=== PATIENT | male | born 1965 | race Caucasian/White ===

== ENCOUNTER 2024-06-01 15:03 | Inpatient (IN) | payer OTHER, MEDICAID ==
[~2024-06-01] VITALS: Ht 170.2 cm; Wt 63.5 kg
[2024-06-01 15:08] VITALS: BP 220/120; PULSE 90; RESP 20; TEMP 98; O2SAT 95
[2024-06-01 15:37] LABS: BASOPHILS # (AUTO) 0.1 K/uL (0.00-0.22); BASOPHILS % (AUTO) 0.9 % (0.0-2.0); EOSINOPHILS # (AUTO) 0.1 K/uL (0-0.4); EOSINOPHILS % (AUTO) 0.3 % (0.0-4.0); HEMATOCRIT 39.4 % (36-52); HEMOGLOBIN 12.7 g/dL (12.0-18.0); LYMPHOCYTES # (AUTO) 1.1 K/uL (2.0-11.5); LYMPHOCYTES % (AUTO) 7.2 % (20.5-51.1); MEAN CORPUSCULAR HEMOGLOBIN 28 pg (27-31); MEAN CORPUSCULAR HGB CONC 32 g/dL (33-37); MEAN CORPUSCULAR VOLUME 86.2 fL (80-94); MONOCYTES # (AUTO) 1.3 K/uL (0.8-1.0); NEUTROPHILS # (AUTO) 13.1 K/uL (1.8-7.7); NEUTROPHILS % (AUTO) 83.6 % (42.2-75.2); PLATELET COUNT (AUTO) 277 K/uL (140-450); RED BLOOD CELL COUNT(AUTO) 4.57 MIL/uL (4.20-6.10); RED CELL DISTRIBUTION WIDTH 16.8 % (11.6-13.7); WHITE BLOOD COUNT (AUTO) 15.7 K/uL (4.8-10.8)
[2024-06-01 15:52] LABS: ANION GAP 16.2 (8-16); CALCIUM 9.1 mg/dL (8.5-10.1); CARBON DIOXIDE 29.1 mmol/L (21-32); POTASSIUM 5.3 mmol/L (3.5-5.1)
[2024-06-01 16:04] LABS: CREATININE 8.4 mg/dL (0.6-1.3)
[2024-06-01] MEDS ORDERED: FURO80TA6 PO (16:42)
[2024-06-01] MEDS ORDERED: AMLO10TA88 PO (16:42)
[2024-06-01] MEDS ORDERED: TACR1CAP10 PO (16:42)
[2024-06-01] MEDS ORDERED: KETO5DRO2 OP (16:42)
[2024-06-01] MEDS ORDERED: SODI325T PO (16:42)
[2024-06-01] MEDS ORDERED: ESOM40CA2 PO (16:42)
[2024-06-01] MEDS ORDERED: LISI40TA8 PO (16:42)
[2024-06-01] MEDS ORDERED: LATA2.5S14 OP (16:42)
[2024-06-01] MEDS ORDERED: CALC667C3 PO (16:42)
[2024-06-01] MEDS ORDERED: METO-251 PO (16:42)
[2024-06-01] MEDS ORDERED: SIMV10TA92 PO (16:42)
[2024-06-01] MEDS ORDERED: [UNRECOGNIZED DRUG - CODE] PO (16:42)
[2024-06-01] MEDS ORDERED: LORazepam 1 MG TAB PO PRN (17:00)
[2024-06-01] MEDS ORDERED: ONDANSETRON 4 MG/2 ML VIAL IVP PRN (17:00)
[2024-06-01] MEDS ORDERED: HYDROcodone/APAP 5/325 MG 1 TAB TAB PO PRN (17:00)
[2024-06-01] MEDS ORDERED: DEXTROSE 50% 50 ML SYR IVP PRN (17:15)
[2024-06-01] MEDS: FUROSEMIDE 40 MG/4 ML VIAL IVP SCH (17:31)
[2024-06-01] MEDS: INSULIN REGULAR, HUMAN 100 UNIT/ML VIAL IVP ONE (17:38)
[2024-06-01] MEDS: ENALAPRILAT 2.5 MG/2 ML VIAL IVP ONE (17:40)
[2024-06-01 17:49] LABS: BLOOD GAS PCO2 35.2 mmHg (35.0-48.0); BLOOD GAS PH 7.455 (7.350-7.450)
[2024-06-01 17:50] LABS: BLOOD GAS BASE EXCESS 0.7 mmol/L (-2.0-3.0); BLOOD GAS HCO3 24.2 mmol/L (21.0-28.0); BLOOD GAS PO2 37.2 mmHg (83.0-108.0)
[2024-06-01 17:51] LABS: BLOOD GAS O2 SAT% 70.4 % (94.0-98.0)
[2024-06-01 18:05] VITALS: BP 181/84; PULSE 77; RESP 20; TEMP 97.2; O2SAT 98
[2024-06-01] MEDS: CLONIDINE HYDROCHLORIDE 0.1 MG TAB PO SCH (18:34)
[2024-06-01 19:33] VITALS: PULSE 75; RESP 20; O2SAT 100
[2024-06-01 20:00] VITALS: PULSE 70; PULSE 76; RESP 20; O2SAT 100
[2024-06-01] MEDS: ZOLPIDEM 5 MG TAB PO PRN (20:14)
[2024-06-01] MEDS: METOPROLOL 50 MG TAB PO SCH (20:15)
[2024-06-01] MEDS: INSULIN LANTUS 100 UNITS/ML 10 ML VIAL SUBQ SCH (20:22)
[2024-06-01] MEDS: INSULIN LISPRO SLIDING SCALE 100 UNITS/ML VIAL SUBQ PRN (20:23)
[2024-06-01] MEDS: BLOOD GLUCOSE MONITORING 1 DEV DEV FS SCH (20:29)
[2024-06-01] MEDS ORDERED: FUROSEMIDE PO SCH (21:00)
[2024-06-02] VITALS (8 sets, daily range): BP systolic 144–193; BP diastolic 69–83; PULSE 61–75; RESP 17–20; TEMP 97.2–98.6; O2SAT 94–100
[2024-06-02] MEDS: DOCUSATE SODIUM 100 MG GELCAP PO SCH (08:52)
[2024-06-02] MEDS: SIMVASTATIN 10 MG TAB PO SCH (08:53)
[2024-06-02] MEDS: CALCIUM ACETATE 667 MG TAB PO SCH (08:53)
[2024-06-02] MEDS: amLODIPine 5 MG TAB PO SCH (08:53)
[2024-06-02] MEDS ORDERED: NON-FORMULARY ITEM (Lisinopril 1 TAB) PO SCH (09:00)
[2024-06-02 09:06] LABS: BASOPHILS # (AUTO) 0.1 K/uL (0.00-0.22); BASOPHILS % (AUTO) 0.9 % (0.0-2.0); EOSINOPHILS # (AUTO) 0.2 K/uL (0-0.4); EOSINOPHILS % (AUTO) 1.3 % (0.0-4.0); HEMATOCRIT 40.7 % (36-52); HEMOGLOBIN 12.9 g/dL (12.0-18.0); LYMPHOCYTES # (AUTO) 1.7 K/uL (2.0-11.5); MEAN CORPUSCULAR HEMOGLOBIN 28 pg (27-31); MEAN CORPUSCULAR HGB CONC 32 g/dL (33-37); MEAN CORPUSCULAR VOLUME 86.9 fL (80-94); MONOCYTES # (AUTO) 1.1 K/uL (0.8-1.0); MONOCYTES % (AUTO) 7.4 % (1.7-9.3); NEUTROPHILS # (AUTO) 11.1 K/uL (1.8-7.7); NEUTROPHILS % (AUTO) 78.4 % (42.2-75.2); PLATELET COUNT (AUTO) 257 K/uL (140-450); RED BLOOD CELL COUNT(AUTO) 4.69 MIL/uL (4.20-6.10); WHITE BLOOD COUNT (AUTO) 14.2 K/uL (4.8-10.8)
[2024-06-02 09:30] LABS: ALBUMIN 2.8 g/dL (3.4-5.0); ANION GAP 14.3 (8-16); CALCIUM 9.3 mg/dL (8.5-10.1); CARBON DIOXIDE 30.5 mmol/L (21-32); POTASSIUM 4.8 mmol/L (3.5-5.1); TOTAL BILIRUBIN 0.8 mg/dL (0.0-1.0); TOTAL PROTEIN, SERUM 7.4 g/dL (6.4-8.2)
[2024-06-02 09:43] LABS: CREATININE 8.8 mg/dL (0.6-1.3)
[2024-06-02] MEDS ORDERED: Z-GUARD PASTE TP PRN (11:15)
[2024-06-02] MEDS ORDERED: FOAM DRESSING TP PRN (11:15)
[2024-06-02] MEDS: Z-GUARD PASTE TP SCH (12:05)
[2024-06-02] MEDS: FOAM DRESSING TP SCH (12:05)
[2024-06-02] MEDS: LATANOPROST 0.005% OP 2.5 ML BTL OP SCH (21:07)
[2024-06-03] VITALS (9 sets, daily range): BP systolic 121–183; BP diastolic 44–80; PULSE 61–74; RESP 18–22; TEMP 98–98.6; O2SAT 95–100
[2024-06-03 06:39] LABS: BASOPHILS # (AUTO) 0.2 K/uL (0.00-0.22); BASOPHILS % (AUTO) 1.6 % (0.0-2.0); EOSINOPHILS # (AUTO) 0.4 K/uL (0-0.4); EOSINOPHILS % (AUTO) 3.9 % (0.0-4.0); HEMATOCRIT 34.4 % (36-52); HEMOGLOBIN 11.1 g/dL (12.0-18.0); LYMPHOCYTES # (AUTO) 1.2 K/uL (2.0-11.5); LYMPHOCYTES % (AUTO) 11.8 % (20.5-51.1); MEAN CORPUSCULAR HEMOGLOBIN 28 pg (27-31); MEAN CORPUSCULAR HGB CONC 32 g/dL (33-37); MEAN CORPUSCULAR VOLUME 86.3 fL (80-94); MONOCYTES # (AUTO) 1.5 K/uL (0.8-1.0); MONOCYTES % (AUTO) 14.6 % (1.7-9.3); NEUTROPHILS % (AUTO) 68.1 % (42.2-75.2); PLATELET COUNT (AUTO) 221 K/uL (140-450); RED BLOOD CELL COUNT(AUTO) 3.98 MIL/uL (4.20-6.10); RED CELL DISTRIBUTION WIDTH 16.4 % (11.6-13.7); WHITE BLOOD COUNT (AUTO) 10.3 K/uL (4.8-10.8)
[2024-06-03 06:53] LABS: ANION GAP 12.9 (8-16); CALCIUM 8.7 mg/dL (8.5-10.1); CARBON DIOXIDE 30.3 mmol/L (21-32); POTASSIUM 4.2 mmol/L (3.5-5.1)
[2024-06-03 07:00] LABS: CREATININE 5.9 mg/dL (0.6-1.3)
[2024-06-04] VITALS (10 sets, daily range): BP systolic 127–180; BP diastolic 43–76; PULSE 58–68; RESP 18–19; TEMP 97.2–97.9; O2SAT 95–100
[2024-06-04 06:39] LABS: BASOPHILS # (AUTO) 0.2 K/uL (0.00-0.22); BASOPHILS % (AUTO) 1.8 % (0.0-2.0); EOSINOPHILS # (AUTO) 1.1 K/uL (0-0.4); EOSINOPHILS % (AUTO) 11.3 % (0.0-4.0); HEMATOCRIT 37.1 % (36-52); HEMOGLOBIN 11.8 g/dL (12.0-18.0); LYMPHOCYTES # (AUTO) 1.6 K/uL (2.0-11.5); LYMPHOCYTES % (AUTO) 15.9 % (20.5-51.1); MEAN CORPUSCULAR HEMOGLOBIN 28 pg (27-31); MEAN CORPUSCULAR HGB CONC 32 g/dL (33-37); MEAN CORPUSCULAR VOLUME 87.7 fL (80-94); MONOCYTES # (AUTO) 1.5 K/uL (0.8-1.0); MONOCYTES % (AUTO) 15.1 % (1.7-9.3); NEUTROPHILS # (AUTO) 5.7 K/uL (1.8-7.7); NEUTROPHILS % (AUTO) 55.9 % (42.2-75.2); PLATELET COUNT (AUTO) 269 K/uL (140-450); RED BLOOD CELL COUNT(AUTO) 4.23 MIL/uL (4.20-6.10); RED CELL DISTRIBUTION WIDTH 16.8 % (11.6-13.7); WHITE BLOOD COUNT (AUTO) 10.1 K/uL (4.8-10.8)
[2024-06-04 06:48] LABS: ANION GAP 13.6 (8-16); CALCIUM 9.3 mg/dL (8.5-10.1); CARBON DIOXIDE 30.7 mmol/L (21-32); POTASSIUM 4.3 mmol/L (3.5-5.1)
[2024-06-04] MEDS: LOSARTAN 25 MG TAB PO SCH (12:58)
[2024-06-04] MEDS: ACETAMINOPHEN 325 MG TAB PO PRN (23:46)
[2024-06-05] VITALS (8 sets, daily range): BP systolic 133–165; BP diastolic 64–75; PULSE 53–64; RESP 18–19; TEMP 97–97.5; O2SAT 97–100
[2024-06-05 06:54] LABS: BASOPHILS # (AUTO) 0.1 K/uL (0.00-0.22); BASOPHILS % (AUTO) 1.3 % (0.0-2.0); EOSINOPHILS # (AUTO) 1.4 K/uL (0-0.4); EOSINOPHILS % (AUTO) 16.4 % (0.0-4.0); HEMATOCRIT 33.8 % (36-52); HEMOGLOBIN 10.7 g/dL (12.0-18.0); LYMPHOCYTES # (AUTO) 1.3 K/uL (2.0-11.5); LYMPHOCYTES % (AUTO) 15.5 % (20.5-51.1); MEAN CORPUSCULAR HEMOGLOBIN 28 pg (27-31); MEAN CORPUSCULAR HGB CONC 32 g/dL (33-37); MEAN CORPUSCULAR VOLUME 87.5 fL (80-94); NEUTROPHILS # (AUTO) 4.7 K/uL (1.8-7.7); NEUTROPHILS % (AUTO) 54.8 % (42.2-75.2); PLATELET COUNT (AUTO) 287 K/uL (140-450); RED BLOOD CELL COUNT(AUTO) 3.87 MIL/uL (4.20-6.10); RED CELL DISTRIBUTION WIDTH 16.8 % (11.6-13.7); WHITE BLOOD COUNT (AUTO) 8.5 K/uL (4.8-10.8)
[2024-06-05 06:59] LABS: ANION GAP 14.7 (8-16); CALCIUM 8.7 mg/dL (8.5-10.1); POTASSIUM 4.7 mmol/L (3.5-5.1)
[2024-06-05 07:40] LABS: CREATININE 6.1 mg/dL (0.6-1.3)
[2024-06-05 08:09] LABS: HEPATITIS A ANTIBODY IGM Negative (Negative); HEPATITIS B CORE AB TOTAL Negative (Negative); HEPATITIS B CORE, IGM Negative (Negative); HEPATITIS B SURFACE ANTIBODY Reactive (.); HEPATITIS B SURFACE ANTIGEN Negative (Negative); HEPATITIS C VIRUS ANTIBODY Non Reactive (Non Reactive)
[2024-06-05] MEDS ORDERED: LOSA-269 PO (10:24)
[2024-06-05 15:11] LABS: HEPATITIS A ANTIBODY TOTAL Positive (Negative)
== END 2024-06-05 17:40 | DRG 291 ==
LOC: MED 15:03 → MTU 16:59
PROVIDERS: ADMIT Student in an Organized Health Care Education/Training Program; ATTEND Student in an Organized Health Care Education/Training Program
PROC: 5A1D70Z Performance of Urinary Filtration, Intermittent, Less than 6 Hours Per Day (ICD-10-PCS; principal; 2024-06-02)
PROC: 5A1D70Z Performance of Urinary Filtration, Intermittent, Less than 6 Hours Per Day (ICD-10-PCS; 2024-06-03)
PROC: 5A1D70Z Performance of Urinary Filtration, Intermittent, Less than 6 Hours Per Day (ICD-10-PCS; 2024-06-05)
DX: I13.2 Hypertensive heart and chronic kidney disease with heart failure and with stage 5 chronic kidney disease, or end stage renal disease (principal); I50.41 Acute combined systolic (congestive) and diastolic (congestive) heart failure; J96.01 Acute respiratory failure with hypoxia; N18.6 End stage renal disease; I16.9 Hypertensive crisis, unspecified; R65.10 Systemic inflammatory response syndrome (SIRS) of non-infectious origin without acute organ dysfunction; E44.0 Moderate protein-calorie malnutrition; E87.1 Hypo-osmolality and hyponatremia; E11.22 Type 2 diabetes mellitus with diabetic chronic kidney disease; E87.5 Hyperkalemia; E83.39 Other disorders of phosphorus metabolism; E11.65 Type 2 diabetes mellitus with hyperglycemia; Z99.2 Dependence on renal dialysis; Z79.4 Long term (current) use of insulin; Z68.21 Body mass index [BMI] 21.0-21.9, adult; Z88.5 Allergy status to narcotic agent
CPT/HCPCS: 36415; 71045; 80048; 80053; 82948; 83880; 84100; 84484; 85025; 86704; 86706; 86708; 86709; 86803; 87081; 87340; 90935; 93005; 94617; 96374; 97110; 97116; 97163-GP; 97530; 99285; J1815; J1940; J3490; Q0092